=== PATIENT | female | born 1965 | race Caucasian/White ===

== ENCOUNTER 2021-01-28 18:11 | Emergency (ER) | payer OTHER ==
[2021-01-28] MEDS ORDERED: PROZAC20 MG PO (19:53)
[2021-01-28] MEDS ORDERED: PROGESTERONE100 MG PO (19:54)
[2021-01-28] MEDS ORDERED: ZOFRAN4 MG PO (21:54)
== END 2021-01-28 22:36 | disposition home or self-care (01) ==
LOC: ED 18:11
DX: U07.1 COVID-19 (principal); Z88.5 Allergy status to narcotic agent; Z91.048 Other nonmedicinal substance allergy status; Z79.899 Other long term (current) drug therapy
CPT/HCPCS: 71045; 80053; 81001; 83735; 85025; 96374; 99283-25; A9270; C9803; J2405; J7030; U0003